=== PATIENT | male | born 1955 | race Caucasian/White ===

== ENCOUNTER 2024-01-02 13:18 | Emergency (ER) | payer MEDICARE, OTHER, SELFPAY ==
[2024-01-02 13:19] VITALS: BP 143/99
--- NOTE | 2024-01-02 14:04 | ED.GENMED ---
History of Present Illness
General
Chief Complaint: Male Genito-Urinary Symptoms
Time Seen by Provider: 01/02/24 14:04
History of Present Illness
History of Present Illness:
HPI: Patient presents w/ inability to void. He had similar episode in past after a procedure and at that time he was straight cath'd and symptoms resolved. No gross hematuria. Feels uncomfortable. Is known to [facility]. He took a total of 4
Flomax earlier today. He is traveling in 3 days for 5 days.
EXAM:
GENERAL: Appears only slightly uncomfortable
ABDOMEN: Suprapubic tenderness / fullness noted
NEUROLOGIC: Excellent strength in all extremities
EXTREMITIES: Nontender
PYSCHIATRIC: Appropriate mental status
TIME OF INITIAL ENCOUNTER: 2:20 PM
NUMBER AND COMPLEXITY OF PROBLEMS ADDRESSED AT THE ENCOUNTER
� Chronic conditions affecting care: BPH, diabetes, CAD, high blood pressure
� Acute Exacerbation and/or Progression of Chronic Illness: This is an acute problem but had a similar episode in the past
� Differential Diagnosis includes: Acute urinary retention, highly doubt kidney stone, doubt urinary tract infection none needed
AMOUNT AND/OR COMPLEXITY OF DATA TO BE REVIEWED AND ANALYZED
� I performed an independent evaluation of and my interpretation is:
EKG:
CT:
X-rays:
Laboratory Studies: Urinalysis shows trace LE
Other:
� Review of other/old records: The patient had non-STEMI June 2022 and at that time he did have acute urinary retention
� Clinical information was obtained by an independent historian: None needed
� Prescriptions/Medications Considered but not given:
� Further testing considered but not performed:
RISK OF COMPLICATIONS AND/OR MORBIDITY OR MORTALITY OF PATIENT MANAGEMENT
� Social determinants of health affecting care: Lives at home, is planning on going on an 11-hour trip on Friday
� Discussion with other providers: Notified Dr. Yoder of patient's visit to the emergency department - recommends keeping the catheter in for the weeks while away and to contact [facility] for further recommendations
� Escalation of care including admission/observation vs risk of discharge considered: I personally performed bladder scan which showed 887 mL of urine in the bladder. Hutton catheter placed - 1.2L removed. Gave rx for Keflex for a
few days as he is a diabetic and may have the catheter in for more than a few days.
Phy Exam
Physical Exam
Physical Exam:
See HPI
Course
Orders/Labs/Results
Orders:
Orders
01/02/24 13:26
Urinalysis Reflex To Culture Urgent
Date Specimen was Collected: 01/02/24
Time Specimen was Collected: 13:25
Urine Microscopic Reflex Cult Urgent
Abnormal Lab Results
01/02/24
13:26
Leukocyte Esterase Rfl Trace A
(Negative)
Vital Signs
Initial and Last Documented VS:
Initial Vital Signs
Pulse Resp BP Pulse Ox
117 16 143/99 98
01/02/24 13:19 01/02/24 13:19 01/02/24 13:19 01/02/24 13:19
Last Documented Vital Signs
Pulse Resp BP Pulse Ox
90 16 120/72 97
01/02/24 14:47 01/02/24 14:47 01/02/24 14:47 01/02/24 14:47
*Critical Care Note
Total Time (30-74mins, 75-104mins- exclusive of procedures): Not Applicable
ED Attending Note
-
Portions of this chart may have been created with voice recognition software.� Occasional wrong word or��sound alike� substitutions may have occurred due to the inherent limitations of voice recognition software.
Discharge Plan
Departure
Patient Disposition: Home (Routine Discharge)
Date of Disposition: 01/02/24
Time of Disposition: 15:03
Patient with high blood pressure during this ER visit?: Yes
Discharge Problem:
Acute urinary retention
Instructions: Urinary Retention (DC), BLOOD PRESSURE
Prescriptions:
New
cephalexin 500 mg capsule
500 mg PO BID Qty: 8 0RF
cephalexin 500 mg capsule
500 mg PO BID Qty: 8 0RF
No Action
famotidine 20 MG tablet
20 mg PO DAILY
ezetimibe 10 MG tablet
10 mg PO DAILY
rosuvastatin 40 MG tablet
40 mg PO DAILY@1999
glipizide 5 mg tablet extended release 24hr
5 mg PO DAILY@1999
therapeutic multivitamin Tablet
1 tab PO DAILY
aspirin 81 mg Tablet,Delayed Release (Dr/Ec)
81 mg PO DAILY@1999
metformin 1,000 mg tablet
1,000 mg PO DAILY
coenzyme Q10 [CoQ-10] 100 mg Capsule
200 mg PO DAILY
metoprolol succinate 50 mg Tablet Extended Release 24 Hr
50 mg PO DAILY Qty: 90 0RF
clopidogrel 75 mg Tablet
75 mg PO DAILY Qty: 90 0RF
lisinopril 10 mg Tablet
10 mg PO DAILY Qty: 90 0RF
tamsulosin [Flomax] 0.4 mg capsule
0.4 mg PO DAILY Qty: 90 0RF
Referrals:
Gilberto Birch MD [Active] - Follow up in 2-3 days
Vince John MD [Family Provider] -
Activity Restrictions/Additional Instructions:
I spoke to Dr. Yoder (Dr. Birch's associate), and since you have a very large (>1 Liter) of urine in the bladder, he recommended to leave the catheter in for the next week until you come back. We are giving you a leg bag. No clear sign of
infection on the urinalysis. Dr. Yoder also recommends that you call Dr. Birch to get his opinion regarding when to have the catheter removed. Return here if worse.
Interventions
Interventions:
*Risk Screen - Suicide Last Done: 01/02/24 13:19
*General Assessment Last Done: 01/02/24 13:19
*Neglect/Abuse Screening Last Done: 01/02/24 13:19
ED- Fall Risk Assessment Last Done: 01/02/24 15:23
*ED COVID-19 Vaccine History Last Done: 01/02/24 14:48
*Nursing Disposition Last Done: 01/02/24 15:23
ED-Male Genitourinary Assessment Last Done: 01/02/24 14:48
Discharge Date and Time
Discharge Date/Time: 01/02/24 15:35
Print Language: [place]
[2024-01-02 14:38] LABS: Urine Albumin Trace (Neg - Trace); Urine Bilirubin Negative (Negative); Urine Character Clear (Clear); Urine Color Yellow; Urine Glucose Negative (Negative); Urine Ketone Negative (Negative); Urine Leukocyte Trace (Negative); Urine Nitrite Negative (Negative); Urine Occult Blood Negative (Negative); Urine Specific Gravity 1.015 (<1.030); Urine Urobilinogen Negative (Neg - 1+); Urine pH 6.5 (5.0-9.0)
[2024-01-02 14:47] VITALS: BP 120/72
[2024-01-02 16:19] LABS: Urine Red Blood Cell 0-2 /HPF (0-2); Urine White Cell 0-2 /HPF (0-5)
== END 2024-01-02 15:35 | disposition home or self-care (01) ==
LOC: EMR 13:18
PROVIDERS: Emergency Medicine; EMERGENCY PHYSICIAN Emergency Medicine; FAMILY PHYSICIAN Family Medicine
DX: R33.8 Other retention of urine (principal); R03.0 Elevated blood-pressure reading, without diagnosis of hypertension
CPT/HCPCS: 99283; 51702; 51798; 81003; 81015

== ENCOUNTER → 2025-04-22 12:15 | Outpatient (REF) | payer MEDICARE, OTHER, SELFPAY | LOC: RAD 12:15 | PROVIDERS: ATTENDING PHYSICIAN Family Medicine | DX: M25.561 Pain in right knee (principal) | CPT/HCPCS: 73564 ==